=== PATIENT | female | born 1990 | race Caucasian/White ===

== ENCOUNTER 2016-10-28 20:54 | Emergency (ER) | payer OTHER ==
[~2016-10-28] VITALS: Ht 157.5 cm; Wt 53.6 kg
[~2016-10-28 20:54] MED LIST: FLEXERIL PO; MAG CITRATE PO; NAPROSYN500 MG PO
[2016-10-28] MEDS ORDERED: ZPAK PO (21:38)
[2016-10-28 21:40] VITALS: BP 118/68
== END 2016-10-28 21:48 | disposition home or self-care (01) | DRG 153 ==
LOC: ED 20:54
DX: J02.9 Acute pharyngitis, unspecified (principal); F17.210 Nicotine dependence, cigarettes, uncomplicated

== ENCOUNTER 2019-02-12 11:12 | Emergency (ER) | payer SELFPAY ==
[~2019-02-12] VITALS: Ht 157.5 cm; Wt 57.3 kg
[~2019-02-12 11:12] MED LIST changes: +ZPAK PO
[2019-02-12 12:55] VITALS: BP 126/79
== END 2019-02-12 12:55 | disposition home or self-care (01) | DRG 866 ==
LOC: ED 11:12
DX: B34.9 Viral infection, unspecified (principal); F17.210 Nicotine dependence, cigarettes, uncomplicated